=== PATIENT | male | born 1995 | race Caucasian/White ===

== ENCOUNTER 2016-09-19 21:43 | Emergency (ER) | payer BC ==
[2016-09-19] MEDS ORDERED: Magnesium CITRATE* 300 ML BTL PO ONE (22:25)
[2016-09-19] MEDS ORDERED: Sodium Phosphate ADULT ENEMA* 118 ml bottle PR ONE (22:25)
[2016-09-20 00:22] VITALS: BP 116/56
--- NOTE | 2016-09-21 15:23 | ED ---
Isa Manzanares Alok, scribed for Remi Altamirano MD on 09/19/16 at 2303 . GI/ HPI - HPI Summary HPI Summary: 21 y/o male presents to the ED with constipation for the past week. Pt states that 4 to 5 year ago he suffered a back injury and has had digestive problems ever since. His baseline BM have been every 2 or 3 days but has had little to no BM for the past week. His symptoms are worsened by fatty foods which in general he tries to avoid, but recently had ingested while traveling last week. Pt has tried several laxatives and suppositories as well as milk of magnesium today and in the past few days with no relief. Pt adds experiencing abd pain of the left side of his body earlier in the week which was described as "one of the worst pains in his life". Pt also adds dizziness and lightheadedness but is still able to ambulate. Pt also adds groing pain light a pressure without tingling or numbness. Pt denies any vomiting, or urinary problems. He has had no abd surgeries in the past and is currently a student. - History of Current Complaint Chief Complaint: EDAbdPain Time Seen by Provider: 09/19/16 22:16 Stated Complaint: ABD PAIN Hx Obtained From: Patient Onset/Duration: Started Days Ago, Atraumatic, Still Present Timing: Constant Severity: Moderate Current Severity: Moderate Pain Intensity: 9 Location of Pain: LUQ, LLQ, Groin Pain Characteristics: Pressure Associated Signs and Symptoms: Positive: Dizziness, Constipation, Lightheadedness, Abdominal Pain. Negative: Vomiting, Hematuria, Dysuria Aggravating Factor(s): Food - Fatty food Alleviating Factor(s): Nothing - Allergy/Home Medications Allergies/Adverse Reactions: Allergies Allergy/AdvReac Type Severity Reaction Status Date / Time No Known Allergies Allergy Verified 04/05/16 15:04 PMH/Surg Hx/FS Hx/Imm Hx Endocrine/Hematology History: Denies: Hx Diabetes Cardiovascular History: Denies: Hx Hypertension, Hx Pacemaker/ICD History: Denies: Hx Renal Disease Sensory History: Denies: Hx Hearing Aid Psychiatric History: Denies: Hx Panic Disorder - Surgical History Surgery Procedure, Year, and Place: - - Immunization History Date of Tetanus Vaccine: utd Date of Influenza Vaccine: utd Infectious Disease History: No Infectious Disease History: Denies: Traveled Outside the [place] in Last 30 Days - Family History Known Family History: Positive: Cardiac Disease - Father's side - Social History Occupation: Student Alcohol Use: Weekly Substance Use Type: Reports: Marijuana Substance Use Comment - Amount & Last Used: 3 x per week Smoking Status (MU): Former Smoker Review of Systems Negative: Fever, Chills Negative: Erythema Negative: Sore Throat Negative: Chest Pain Negative: Shortness Of Breath, Cough Gastrointestinal: Other - Constipation Positive: Abdominal Pain. Negative: Vomiting, Nausea Negative: dysuria, hematuria Negative: Myalgia, Edema Negative: Rash Neurological: Other - Dizziness, Lightheadedness All Other Systems Reviewed And Are Negative: Yes Physical Exam - Summary Physical Exam Summary: Constitutional: Well-developed, Well-nourished, Alert. (-) Distressed Skin: Warm, Dry HENT: Eyes: Conjunctiva normal Neck: Musculoskeletal ROM normal neck. (-) JVD, (-) Stridor, (-) Tracheal deviation Cardio: Rhythm regular, rate normal, Heart sounds normal; Intact distal pulses ; The pedal pulses are 2+ and symmetric. Radial pulses are 2+ and symmetric. (- ) Murmur Pulmonary/Chest wall: Effort normal. (-) Respiratory distress, (-) Wheezes, (-) Rales Abd: Soft. (-) Tenderness, (-) Distension, (-) Guarding, (-) Rebound Musculoskeletal: (-) Edema Lymph: (-) Cervical adenopathy Neuro: Alert, Oriented x3, Strength normal, Cranial nerves II-XII are grossly intact. (-) Dysmetria, (-) Nystagmus, (-) Ataxia by finger to nose testing, (-) Sensory deficit. Psych: Mood and affect Normal Triage Information Reviewed: Yes Vital Signs On Initial Exam: Initial Vitals Temp Pulse Resp BP Pulse Ox 97.8 F 74 18 130/77 98 09/19/16 21:51 09/19/16 21:51 09/19/16 21:51 09/19/16 21:51 09/19/16 21:51 Vital Signs Reviewed: Yes - [place] Coma Scale Coma Scale Total: 15 Diagnostics - Vital Signs Vital Signs Temp Pulse Resp BP Pulse Ox 09/19/16 21:51 97.8 F 74 18 130/77 98 - Laboratory Lab Statement: Any lab studies that have been ordered have been reviewed, and results considered in the medical decision making process. Re-Evaluation - Re-Evaluation First Eval Re-Evaluation Time: 23:23 GIGU Course/Dx - Course Course Of Treatment: Given magnesium citrate and sodium phosphate enema (to be administered at home). Pt declined repeated digital dis-impaction. - Diagnoses Provider Diagnoses: Constipation Discharge - Discharge Plan Condition: Stable Disposition: HOME Patient Education Materials: Constipation (ED) Referrals: [facility] [Primary Care Provider] - 1 Day Additional Instructions: Please follow up with [facility] tomorrow. Please return to the ED if any vomiting or worsening pain. The documentation as recorded by the Isa shepard Alok accurately reflects the service I personally performed and the decisions made by , Remi Altamirano MD.
== END 2016-09-20 00:16 | disposition home or self-care (01) ==
LOC: ED 21:43
DX: K59.00 Constipation, unspecified (principal); R42 Dizziness and giddiness; R10.84 Generalized abdominal pain; Z87.891 Personal history of nicotine dependence
CPT/HCPCS: 99282; A9270-GY